=== PATIENT | female | born 1935 | race Native Hawaiian/Other Pacific Islander ===

== ENCOUNTER 2016-09-28 08:04 | Outpatient (CLI) | payer OTHER ==
[~2016-09-28 08:04] MED LIST: DIOVAN HC2 PO; FLECTOR1.3 % TD; LEVOTHROID150 MCG OR; LIPITOR40 MG PO; MECLIZINE25 MG PO; TRAM50TA PO; WARFARIN5 MG PO
== END 2016-09-28 19:06 | disposition home or self-care (01) ==
LOC: LABW 08:04
DX: I48.0 Paroxysmal atrial fibrillation (principal)
CPT/HCPCS: 36415; 85610

== ENCOUNTER 2016-11-14 07:58 | Outpatient (CLI) | payer OTHER | END 2016-11-14 19:29 | disposition home or self-care (01) | LOC: LABW 07:58 | DX: I48.0 Paroxysmal atrial fibrillation (principal) | CPT/HCPCS: 36415; 85610 ==

== ENCOUNTER 2016-12-22 10:21 | Outpatient (CLI) | payer OTHER | END 2016-12-22 19:12 | disposition home or self-care (01) | LOC: LABW 10:21 | DX: I48.0 Paroxysmal atrial fibrillation (principal) | CPT/HCPCS: 36415; 85610 ==

== ENCOUNTER 2017-01-24 07:50 | Outpatient (CLI) | payer OTHER | END 2017-01-24 19:19 | disposition home or self-care (01) | LOC: LABW 07:50 | DX: I48.0 Paroxysmal atrial fibrillation (principal) | CPT/HCPCS: 36415; 85610 ==

== ENCOUNTER 2017-02-21 07:58 | Outpatient (CLI) | payer OTHER ==
[~2017-02-21] VITALS: Ht 162.6 cm; Wt 93.4 kg
[2017-02-21 11:00] VITALS: BP 147/76; TEMP 97.7
== END 2017-02-21 10:00 | disposition home or self-care (01) ==
LOC: INF 07:58
DX: M81.0 Age-related osteoporosis without current pathological fracture (principal); I48.0 Paroxysmal atrial fibrillation
CPT/HCPCS: 36415; 82310; 85610; 96372; J0897

== ENCOUNTER 2017-03-28 10:05 | Outpatient (CLI) | payer OTHER ==
[2017-03-28 10:37] LABS: PLATELET COUNT 350 K/uL (152-353)
[2017-03-28 11:17] LABS: SODIUM 138 mmol/L (136-145)
== END 2017-03-28 11:05 | disposition home or self-care (01) ==
LOC: LAB 10:05
PROVIDERS: Internal Medicine
DX: I10 Essential (primary) hypertension (principal); E03.8 Other specified hypothyroidism
CPT/HCPCS: 80053; 80061; 81000; 84439; 84443; 85027

== ENCOUNTER 2017-04-04 15:04 | Outpatient (CLI) | payer OTHER | END 2017-04-04 19:37 | disposition home or self-care (01) | LOC: LABW 15:04 | DX: I48.0 Paroxysmal atrial fibrillation (principal) | CPT/HCPCS: 36415; 85610 ==

== ENCOUNTER 2017-06-04 10:23 | Outpatient (CLI) | payer OTHER ==
[2017-06-04 10:40] LABS: PLATELET COUNT 331 K/uL (152-353)
== END 2017-06-04 11:25 | disposition home or self-care (01) ==
LOC: LABW 10:23
PROVIDERS: Internal Medicine
DX: D64.89 Other specified anemias (principal)
CPT/HCPCS: 36415; 80053; 85027

== ENCOUNTER 2017-06-19 10:22 | Outpatient (CLI) | payer OTHER | END 2017-06-19 11:25 | disposition home or self-care (01) | LOC: LABW 10:22 | DX: I48.0 Paroxysmal atrial fibrillation (principal) | CPT/HCPCS: 36415; 85610 ==

== ENCOUNTER 2017-08-06 12:37 | Outpatient (CLI) | payer OTHER | END 2017-08-06 13:40 | disposition home or self-care (01) | LOC: LABW 12:37 | DX: I48.0 Paroxysmal atrial fibrillation (principal) | CPT/HCPCS: 36415; 85610 ==

== ENCOUNTER 2017-09-11 10:11 | Outpatient (CLI) | payer OTHER | END 2017-09-11 19:06 | disposition home or self-care (01) | LOC: LABW 10:11 | DX: I48.0 Paroxysmal atrial fibrillation (principal) | CPT/HCPCS: 36415; 85610 ==

== ENCOUNTER 2017-10-16 10:46 | Outpatient (CLI) | payer OTHER | END 2017-10-16 19:06 | disposition home or self-care (01) | LOC: LABW 10:46 | DX: I48.0 Paroxysmal atrial fibrillation (principal) | CPT/HCPCS: 36415; 85610 ==

== ENCOUNTER 2017-11-13 10:53 | Outpatient (CLI) | payer OTHER | END 2017-11-13 20:01 | disposition home or self-care (01) | LOC: LABW 10:53 | DX: I48.0 Paroxysmal atrial fibrillation (principal) | CPT/HCPCS: 36415; 85610 ==

== ENCOUNTER 2017-12-06 14:34 | Outpatient (CLI) | payer OTHER ==
[2017-12-06 15:08] LABS: PLATELET COUNT 330 K/uL (152-353)
[2017-12-06 15:25] LABS: POTASSIUM 3.6 mmol/L (3.6-5.2)
== END 2017-12-06 22:51 | disposition home or self-care (01) ==
LOC: LABW 14:34
PROVIDERS: Internal Medicine
DX: J40 Bronchitis, not specified as acute or chronic (principal); R05 Cough; R53.83 Other fatigue; R06.09 Other forms of dyspnea; D68.8 Other specified coagulation defects
CPT/HCPCS: 36415; 80053; 81000; 83880; 84439; 84443; 85027; 85610

== ENCOUNTER 2018-01-01 09:06 | Outpatient (CLI) | payer OTHER | END 2018-01-01 19:33 | disposition home or self-care (01) | LOC: LABW 09:06 | DX: I48.0 Paroxysmal atrial fibrillation (principal) | CPT/HCPCS: 36415; 85610 ==

== ENCOUNTER 2018-01-15 11:22 | Outpatient (CLI) | payer OTHER | END 2018-01-15 19:59 | disposition home or self-care (01) | LOC: LABW 11:22 | DX: I48.0 Paroxysmal atrial fibrillation (principal) | CPT/HCPCS: 36415; 85610 ==

== ENCOUNTER 2018-02-05 09:28 | Outpatient (CLI) | payer OTHER | END 2018-02-05 22:20 | disposition home or self-care (01) | LOC: LABW 09:28 | DX: I48.0 Paroxysmal atrial fibrillation (principal) | CPT/HCPCS: 36415; 85610 ==

== ENCOUNTER 2018-03-05 12:54 | Outpatient (CLI) | payer OTHER | END 2018-03-05 23:15 | disposition home or self-care (01) | LOC: LABW 12:54 | DX: I48.0 Paroxysmal atrial fibrillation (principal) | CPT/HCPCS: 36415; 85610 ==

== ENCOUNTER 2018-03-11 07:57 | Outpatient (CLI) | payer OTHER ==
[~2018-03-11] VITALS: Ht 162.6 cm; Wt 93.4 kg
== END 2018-03-11 20:13 | disposition home or self-care (01) ==
LOC: INF 07:57
DX: M81.0 Age-related osteoporosis without current pathological fracture (principal)
CPT/HCPCS: 36415; 82310; 96372; J0897

== ENCOUNTER 2018-04-09 10:20 | Outpatient (CLI) | payer OTHER | END 2018-04-09 19:08 | disposition home or self-care (01) | LOC: LABW 10:20 | DX: I48.0 Paroxysmal atrial fibrillation (principal) | CPT/HCPCS: 36415; 85610 ==

== ENCOUNTER 2018-04-24 08:19 | Outpatient (CLI) | payer OTHER | END 2018-04-24 19:15 | disposition home or self-care (01) | LOC: LABW 08:19 | DX: I48.0 Paroxysmal atrial fibrillation (principal) | CPT/HCPCS: 36415; 85610 ==

== ENCOUNTER 2018-06-18 10:41 | Outpatient (CLI) | payer OTHER | END 2018-06-18 22:42 | disposition home or self-care (01) | LOC: LABW 10:41 | DX: I48.0 Paroxysmal atrial fibrillation (principal) | CPT/HCPCS: 36415; 85610 ==

== ENCOUNTER 2018-07-23 08:53 | Outpatient (CLI) | payer OTHER | END 2018-07-23 22:22 | disposition home or self-care (01) | LOC: LABW 08:53 | DX: I48.0 Paroxysmal atrial fibrillation (principal) | CPT/HCPCS: 36415; 85610 ==

== ENCOUNTER 2018-09-17 13:15 | Outpatient (CLI) | payer OTHER | END 2018-09-17 23:44 | disposition home or self-care (01) | LOC: LABW 13:15 | DX: I48.0 Paroxysmal atrial fibrillation (principal) | CPT/HCPCS: 36415; 85610 ==

== ENCOUNTER 2018-09-23 08:56 | Outpatient (CLI) | payer OTHER ==
[~2018-09-23] VITALS: Ht 162.6 cm; Wt 95.3 kg
[2018-09-23 10:54] VITALS: BP 139/74; TEMP 97.6
== END 2018-09-23 10:55 | disposition home or self-care (01) ==
LOC: INF 08:56
DX: M81.0 Age-related osteoporosis without current pathological fracture (principal)
CPT/HCPCS: 36415; 82310; 96372; J0897

== ENCOUNTER 2018-11-12 13:39 | Outpatient (CLI) | payer OTHER | END 2018-11-12 19:41 | disposition home or self-care (01) | LOC: LABW 13:39 | DX: I48.0 Paroxysmal atrial fibrillation (principal) | CPT/HCPCS: 36415; 85610 ==

== ENCOUNTER 2018-12-05 09:32 | Outpatient (CLI) | payer OTHER ==
[2018-12-05 09:52] LABS: PLATELET COUNT 317 K/uL (152-353)
[2018-12-05 10:11] LABS: POTASSIUM 4.1 mmol/L (3.6-5.2)
== END 2018-12-05 19:17 | disposition home or self-care (01) ==
LOC: LABW 09:32
PROVIDERS: Internal Medicine
DX: D64.9 Anemia, unspecified (principal); I10 Essential (primary) hypertension; E03.9 Hypothyroidism, unspecified; I48.91 Unspecified atrial fibrillation
CPT/HCPCS: 36415; 80053; 80061; 81000; 84439; 84443; 85027; 85610

== ENCOUNTER 2018-12-31 13:11 | Outpatient (CLI) | payer OTHER | END 2018-12-31 23:15 | disposition home or self-care (01) | LOC: LABW 13:11 | DX: I48.0 Paroxysmal atrial fibrillation (principal) | CPT/HCPCS: 36415; 85610 ==

== ENCOUNTER 2019-01-16 09:34 | Outpatient (CLI) | payer OTHER | END 2019-01-16 19:12 | disposition home or self-care (01) | LOC: US 09:34 | DX: G45.9 Transient cerebral ischemic attack, unspecified (principal) ==

== ENCOUNTER 2019-01-28 14:03 | Outpatient (CLI) | payer OTHER | END 2019-01-28 20:33 | disposition home or self-care (01) | LOC: LABW 14:03 | DX: I48.0 Paroxysmal atrial fibrillation (principal) | CPT/HCPCS: 36415; 85610 ==

== ENCOUNTER 2019-03-11 13:24 | Outpatient (CLI) | payer OTHER | END 2019-03-11 20:03 | disposition home or self-care (01) | LOC: LABW 13:24 | DX: I48.0 Paroxysmal atrial fibrillation (principal) | CPT/HCPCS: 36415; 85610 ==

== ENCOUNTER 2019-04-14 12:47 | Outpatient (CLI) | payer OTHER ==
[~2019-04-14] VITALS: Ht 162.6 cm; Wt 96.2 kg
[2019-04-14 13:00] VITALS: BP 170/64; TEMP 97.9
== END 2019-04-14 14:34 | disposition home or self-care (01) ==
LOC: INF 12:47
DX: M81.0 Age-related osteoporosis without current pathological fracture (principal)
CPT/HCPCS: 36415; 82310; 96372; J0897

== ENCOUNTER 2019-04-22 13:08 | Outpatient (CLI) | payer OTHER | END 2019-04-22 23:59 | LOC: LABW 13:08 | DX: Z76.89 Persons encountering health services in other specified circumstances (principal); I48.0 Paroxysmal atrial fibrillation | CPT/HCPCS: 36415; 85610; 86735; 86762; 86765 ==

== ENCOUNTER 2019-06-03 13:14 | Outpatient (CLI) | payer OTHER | END 2019-06-03 23:29 | disposition home or self-care (01) | LOC: LABW 13:14 | DX: I48.0 Paroxysmal atrial fibrillation (principal) | CPT/HCPCS: 36415; 85610 ==

== ENCOUNTER 2019-08-05 13:59 | Outpatient (CLI) | payer OTHER | END 2019-08-05 19:42 | disposition home or self-care (01) | LOC: LABW 13:59 | DX: I48.0 Paroxysmal atrial fibrillation (principal) | CPT/HCPCS: 36415; 85610 ==

== ENCOUNTER 2019-09-16 14:40 | Outpatient (CLI) | payer OTHER | END 2019-09-16 19:32 | disposition home or self-care (01) | LOC: LABW 14:40 | DX: I48.0 Paroxysmal atrial fibrillation (principal) | CPT/HCPCS: 36415; 85610 ==

== ENCOUNTER 2019-10-08 08:10 | Outpatient (CLI) | payer OTHER ==
[2019-10-08 08:54] LABS: POTASSIUM 4.3 mmol/L (3.6-5.2)
[2019-10-08 09:40] LABS: PLATELET COUNT 330 K/uL (152-353)
== END 2019-10-08 22:26 | disposition home or self-care (01) ==
LOC: LABW 08:10
PROVIDERS: Internal Medicine
DX: Z00.00 Encounter for general adult medical examination without abnormal findings (principal); I48.0 Paroxysmal atrial fibrillation; I10 Essential (primary) hypertension
CPT/HCPCS: 36415; 80053; 80061; 81000; 84439; 84443; 85027

== ENCOUNTER 2019-10-22 10:01 | Outpatient (CLI) | payer OTHER | END 2019-10-22 20:54 | disposition home or self-care (01) | LOC: RAD 10:01 | DX: Z13.820 Encounter for screening for osteoporosis (principal); Z78.0 Asymptomatic menopausal state ==

== ENCOUNTER 2019-10-30 08:56 | Outpatient (CLI) | payer OTHER ==
[~2019-10-30] VITALS: Ht 162.6 cm; Wt 97.1 kg
[2019-10-30 09:30] VITALS: BP 124/78; TEMP 98
== END 2019-10-30 10:00 | disposition home or self-care (01) ==
LOC: INF 08:56
DX: M81.0 Age-related osteoporosis without current pathological fracture (principal)
CPT/HCPCS: 96372; J0897

== ENCOUNTER 2020-01-06 12:13 | Outpatient (CLI) | payer OTHER | END 2020-01-06 19:08 | disposition home or self-care (01) | LOC: LABW 12:13 | DX: I48.0 Paroxysmal atrial fibrillation (principal) | CPT/HCPCS: 36415; 85610 ==

== ENCOUNTER 2020-01-09 12:14 | Emergency (ER) | payer OTHER ==
[~2020-01-09] VITALS: Ht 162.6 cm; Wt 97.1 kg
[2020-01-09 12:27] VITALS: BP 172/72; TEMP 97.9
[2020-01-09 12:55] LABS: PLATELET COUNT 326 K/uL (152-353)
[2020-01-09 13:14] LABS: PARTIAL THROMBOPLASTIN TIME 35.5 SECONDS (24.5-33.6)
[2020-01-09 13:45] LABS: POTASSIUM 4.3 mmol/L (3.6-5.2); SODIUM 138 mmol/L (136-145)
== END 2020-01-09 15:00 | disposition home or self-care (01) ==
LOC: ED 12:14
PROVIDERS: Family Medicine
DX: R42 Dizziness and giddiness (principal); R55 Syncope and collapse; Z95.0 Presence of cardiac pacemaker
CPT/HCPCS: 80053; 81000; 82550; 84484; 85027; 85610; 85730; 93005; 99284

== ENCOUNTER 2020-03-15 10:44 | Outpatient (CLI) | payer OTHER | END 2020-03-15 19:20 | disposition home or self-care (01) | LOC: LABW 10:44 | DX: I48.0 Paroxysmal atrial fibrillation (principal) | CPT/HCPCS: 36415; 85610 ==

== ENCOUNTER 2020-04-15 15:02 | Outpatient (CLI) | payer OTHER | END 2020-04-15 22:00 | disposition home or self-care (01) | LOC: RAD 15:02 | DX: R05 Cough (principal) ==

== ENCOUNTER 2020-05-11 07:59 | Outpatient (CLI) | payer OTHER ==
[~2020-05-11] VITALS: Ht 162.6 cm; Wt 93.4 kg
[2020-05-11 08:25] VITALS: BP 144/68; TEMP 98.1
== END 2020-05-11 09:40 | disposition home or self-care (01) ==
LOC: INF 07:59
DX: M81.0 Age-related osteoporosis without current pathological fracture (principal)
CPT/HCPCS: 36415; 82310; 96372; J0897

== ENCOUNTER 2020-06-08 10:31 | Outpatient (CLI) | payer OTHER | END 2020-06-09 00:40 | disposition home or self-care (01) | LOC: LABW 10:31 | DX: I48.0 Paroxysmal atrial fibrillation (principal) | CPT/HCPCS: 36415; 85610 ==

== ENCOUNTER 2020-07-14 09:30 | Outpatient (CLI) | payer OTHER | END 2020-07-14 19:46 | disposition home or self-care (01) | LOC: LABW 09:30 | PROVIDERS: ATTEND Internal Medicine Clinical Cardiac Electrophysiology | DX: I48.0 Paroxysmal atrial fibrillation (principal) | CPT/HCPCS: 36415; 85610 ==

== ENCOUNTER 2020-08-10 11:15 | Outpatient (CLI) | payer OTHER | END 2020-08-10 19:58 | disposition home or self-care (01) | LOC: RAD 11:15 | PROVIDERS: ATTEND Internal Medicine | DX: M54.5 Low back pain (principal) ==

== ENCOUNTER 2020-08-17 13:03 | Outpatient (CLI) | payer OTHER | END 2020-08-17 22:00 | disposition home or self-care (01) | LOC: LABW 13:03 | PROVIDERS: ATTEND Internal Medicine Clinical Cardiac Electrophysiology | DX: I48.0 Paroxysmal atrial fibrillation (principal) | CPT/HCPCS: 36415; 85610 ==

== ENCOUNTER 2020-08-24 10:01 | Outpatient (CLI) | payer OTHER | END 2020-08-24 19:11 | disposition home or self-care (01) | LOC: LABW 10:01 | PROVIDERS: ATTEND Internal Medicine Clinical Cardiac Electrophysiology | DX: I48.0 Paroxysmal atrial fibrillation (principal) | CPT/HCPCS: 36415; 85610 ==

== ENCOUNTER 2020-08-31 08:00 | Outpatient (CLI) | payer OTHER ==
[2020-08-31 08:18] LABS: PLATELET COUNT 284 K/uL (152-353)
[2020-08-31 09:02] LABS: POTASSIUM 3.9 mmol/L (3.6-5.2)
== END 2020-08-31 21:32 | disposition home or self-care (01) ==
LOC: LABW 08:00
PROVIDERS: ATTEND Internal Medicine Clinical Cardiac Electrophysiology
DX: I48.0 Paroxysmal atrial fibrillation (principal); I10 Essential (primary) hypertension
CPT/HCPCS: 36415; 80053; 80061; 84439; 84443; 85027; 85610

== ENCOUNTER 2020-09-07 08:55 | Outpatient (CLI) | payer OTHER | END 2020-09-07 22:03 | disposition home or self-care (01) | LOC: LABW 08:55 | PROVIDERS: ATTEND Internal Medicine Clinical Cardiac Electrophysiology | DX: I48.0 Paroxysmal atrial fibrillation (principal) | CPT/HCPCS: 36415; 85610 ==

== ENCOUNTER 2020-09-22 10:06 | Outpatient (CLI) | payer OTHER | END 2020-09-22 23:59 | disposition home or self-care (01) | LOC: LABW 10:06 | PROVIDERS: ATTEND Internal Medicine Clinical Cardiac Electrophysiology | DX: I48.91 Unspecified atrial fibrillation (principal); Z79.01 Long term (current) use of anticoagulants | CPT/HCPCS: 36415; 85610 ==

== ENCOUNTER 2020-09-28 09:47 | Outpatient (CLI) | payer OTHER | END 2020-09-28 21:31 | disposition home or self-care (01) | LOC: LABW 09:47 | PROVIDERS: ATTEND Internal Medicine Clinical Cardiac Electrophysiology | DX: I48.0 Paroxysmal atrial fibrillation (principal) | CPT/HCPCS: 36415; 85610 ==

== ENCOUNTER 2020-11-01 09:57 | Outpatient (CLI) | payer OTHER | END 2020-11-01 22:49 | disposition home or self-care (01) | LOC: LABW 09:57 | PROVIDERS: ATTEND Internal Medicine Clinical Cardiac Electrophysiology | DX: I48.0 Paroxysmal atrial fibrillation (principal) | CPT/HCPCS: 36415; 85610 ==

== ENCOUNTER 2020-11-09 07:27 | Outpatient (CLI) | payer OTHER ==
[~2020-11-09] VITALS: Ht 162.6 cm; Wt 91.2 kg
== END 2020-11-09 19:10 | disposition home or self-care (01) ==
LOC: INF 07:27
PROVIDERS: ATTEND Internal Medicine
DX: M81.0 Age-related osteoporosis without current pathological fracture (principal)
CPT/HCPCS: 36415; 82310; 96372; J0897

== ENCOUNTER 2020-12-07 08:20 | Outpatient (CLI) | payer OTHER | END 2020-12-07 19:06 | disposition home or self-care (01) | LOC: LABW 08:20 | PROVIDERS: ATTEND Internal Medicine Clinical Cardiac Electrophysiology | DX: I48.0 Paroxysmal atrial fibrillation (principal) | CPT/HCPCS: 36415; 85610 ==

== ENCOUNTER 2021-01-18 10:40 | Outpatient (CLI) | payer OTHER | END 2021-01-18 19:34 | disposition home or self-care (01) | LOC: LABW 10:40 | PROVIDERS: ATTEND Internal Medicine Clinical Cardiac Electrophysiology | DX: I48.0 Paroxysmal atrial fibrillation (principal) | CPT/HCPCS: 36415; 85610 ==

== ENCOUNTER 2021-03-01 10:11 | Outpatient (CLI) | payer OTHER | END 2021-03-01 17:00 | disposition home or self-care (01) | LOC: LABW 10:11 | PROVIDERS: ATTEND Internal Medicine Clinical Cardiac Electrophysiology | DX: I48.0 Paroxysmal atrial fibrillation (principal) | CPT/HCPCS: 36415; 85610 ==

== ENCOUNTER 2021-04-08 13:14 | Outpatient (CLI) | payer OTHER | END 2021-04-08 20:01 | disposition home or self-care (01) | LOC: LABW 13:14 | PROVIDERS: ATTEND Internal Medicine Clinical Cardiac Electrophysiology | DX: I48.0 Paroxysmal atrial fibrillation (principal) | CPT/HCPCS: 36415; 85610 ==

== ENCOUNTER 2021-04-14 08:26 | Outpatient (CLI) | payer OTHER ==
[2021-04-14 08:47] LABS: PLATELET COUNT 294 K/uL (152-353)
[2021-04-14 09:03] LABS: POTASSIUM 4.1 mmol/L (3.6-5.2)
== END 2021-04-14 22:33 | disposition home or self-care (01) ==
LOC: LABW 08:26
PROVIDERS: ATTEND Internal Medicine
DX: E03.8 Other specified hypothyroidism (principal); I48.0 Paroxysmal atrial fibrillation; I10 Essential (primary) hypertension
CPT/HCPCS: 36415; 80053; 80061; 81000; 84439; 84443; 85027; 85610

== ENCOUNTER 2021-05-03 13:45 | Emergency (ER) | payer OTHER ==
[~2021-05-03] VITALS: Ht 162.6 cm; Wt 94.8 kg
[2021-05-03 13:51] VITALS: TEMP 98.6
[2021-05-03 15:06] LABS: PLATELET COUNT 292 K/uL (152-353)
[2021-05-03 15:07] LABS: POTASSIUM 3.9 mmol/L (3.6-5.2)
[2021-05-03 19:41] VITALS: BP 168/76
== END 2021-05-03 19:41 | disposition home or self-care (01) ==
LOC: ED 13:45
PROVIDERS: Emergency Medicine Emergency Medical Services
DX: I10 Essential (primary) hypertension (principal); I48.91 Unspecified atrial fibrillation; Z79.01 Long term (current) use of anticoagulants
CPT/HCPCS: 80053; 85027; 85610; 96374; 99284; J0360

== ENCOUNTER 2021-05-19 09:50 | Outpatient (CLI) | payer OTHER ==
[~2021-05-19] VITALS: Ht 162.6 cm; Wt 97.1 kg
== END 2021-05-19 20:10 | disposition home or self-care (01) ==
LOC: INF 09:50
PROVIDERS: ATTEND Internal Medicine
DX: M81.0 Age-related osteoporosis without current pathological fracture (principal)
CPT/HCPCS: 36415; 82310; 96372; J0897

== ENCOUNTER 2021-06-22 12:50 | Outpatient (CLI) | payer OTHER | END 2021-06-22 21:53 | disposition home or self-care (01) | LOC: LABW 12:50 | PROVIDERS: ATTEND Internal Medicine Clinical Cardiac Electrophysiology | DX: I48.0 Paroxysmal atrial fibrillation (principal) | CPT/HCPCS: 36415; 85610 ==

== ENCOUNTER 2021-08-04 11:07 | Outpatient (CLI) | payer OTHER | END 2021-08-04 19:00 | disposition home or self-care (01) | LOC: LABW 11:07 | PROVIDERS: ATTEND Internal Medicine Clinical Cardiac Electrophysiology | DX: I48.0 Paroxysmal atrial fibrillation (principal) | CPT/HCPCS: 36415; 85610 ==

== ENCOUNTER 2021-09-06 09:42 | Outpatient (CLI) | payer OTHER | END 2021-09-06 19:10 | disposition home or self-care (01) | LOC: LABW 09:42 | PROVIDERS: ATTEND Internal Medicine Clinical Cardiac Electrophysiology | DX: I48.0 Paroxysmal atrial fibrillation (principal) | CPT/HCPCS: 36415; 85610 ==

== ENCOUNTER 2021-11-09 13:22 | Outpatient (CLI) | payer OTHER | END 2021-11-09 19:40 | disposition home or self-care (01) | LOC: LABW 13:22 | PROVIDERS: ATTEND Internal Medicine Clinical Cardiac Electrophysiology | DX: I48.0 Paroxysmal atrial fibrillation (principal) | CPT/HCPCS: 36415; 85610 ==

== ENCOUNTER 2022-01-03 10:54 | Outpatient (CLI) | payer OTHER | END 2022-01-03 19:02 | disposition home or self-care (01) | LOC: LABW 10:54 | PROVIDERS: ATTEND Internal Medicine Clinical Cardiac Electrophysiology | DX: I48.0 Paroxysmal atrial fibrillation (principal) | CPT/HCPCS: 36415; 85610 ==

== ENCOUNTER 2022-02-03 08:11 | Outpatient (CLI) | payer OTHER ==
[2022-02-03 08:37] LABS: PLATELET COUNT 297 K/uL (152-353)
[2022-02-03 09:00] LABS: POTASSIUM 3.9 mmol/L (3.6-5.2)
== END 2022-02-03 19:17 | disposition home or self-care (01) ==
LOC: LABW 08:11
PROVIDERS: ATTEND Internal Medicine
DX: I10 Essential (primary) hypertension (principal); E03.8 Other specified hypothyroidism; I48.0 Paroxysmal atrial fibrillation
CPT/HCPCS: 36415; 80053; 80061; 81000; 84443; 84481; 85027; 85610

== ENCOUNTER 2022-04-11 10:29 | Outpatient (CLI) | payer OTHER | END 2022-04-11 19:57 | disposition home or self-care (01) | LOC: LABW 10:29 | PROVIDERS: ATTEND Internal Medicine Clinical Cardiac Electrophysiology | DX: I48.0 Paroxysmal atrial fibrillation (principal) | CPT/HCPCS: 36415; 85610 ==

== ENCOUNTER 2022-04-18 09:52 | Outpatient (CLI) | payer OTHER ==
[~2022-04-18] VITALS: Ht 162.6 cm; Wt 95.3 kg
[2022-04-18 10:15] VITALS: BP 95/54; TEMP 97.8
== END 2022-04-18 21:34 | disposition home or self-care (01) ==
LOC: INF 09:52
PROVIDERS: ATTEND Internal Medicine
DX: M81.0 Age-related osteoporosis without current pathological fracture (principal)
CPT/HCPCS: 36415; 82310; 96372; J0897

== ENCOUNTER 2022-05-12 13:01 | Outpatient (CLI) | payer OTHER | END 2022-05-12 19:13 | disposition home or self-care (01) | LOC: LABW 13:01 | PROVIDERS: ATTEND Internal Medicine Clinical Cardiac Electrophysiology | DX: I48.0 Paroxysmal atrial fibrillation (principal) | CPT/HCPCS: 36415; 85610 ==

== ENCOUNTER 2022-06-13 10:40 | Outpatient (CLI) | payer OTHER | END 2022-06-13 19:32 | disposition home or self-care (01) | LOC: LABW 10:40 | PROVIDERS: ATTEND Internal Medicine Clinical Cardiac Electrophysiology | DX: I48.0 Paroxysmal atrial fibrillation (principal) | CPT/HCPCS: 36415; 85610 ==

== ENCOUNTER → 2022-07-04 | Outpatient (CLI) | payer OTHER | LOC: RAD 09:08 | PROVIDERS: ATTEND Internal Medicine | DX: M25.431 Effusion, right wrist (principal) ==

== ENCOUNTER 2022-07-31 14:31 | Outpatient (CLI) | payer OTHER | END 2022-07-31 20:09 | disposition home or self-care (01) | LOC: LABW 14:31 | PROVIDERS: ATTEND Internal Medicine Clinical Cardiac Electrophysiology | DX: I48.0 Paroxysmal atrial fibrillation (principal) | CPT/HCPCS: 36415; 85610 ==

== ENCOUNTER 2022-09-11 14:40 | Outpatient (CLI) | payer OTHER | END 2022-09-11 21:40 | disposition home or self-care (01) | LOC: LABW 14:40 | PROVIDERS: ATTEND Internal Medicine Clinical Cardiac Electrophysiology | DX: I48.0 Paroxysmal atrial fibrillation (principal) | CPT/HCPCS: 36415; 85610 ==

== ENCOUNTER 2022-09-25 08:17 | Outpatient (CLI) | payer OTHER ==
[2022-09-25 08:37] LABS: PLATELET COUNT 299 K/uL (152-353)
[2022-09-25 08:55] LABS: POTASSIUM 4.1 mmol/L (3.6-5.2)
== END 2022-09-25 19:21 | disposition home or self-care (01) ==
LOC: LABW 08:17
PROVIDERS: ATTEND Internal Medicine
DX: I10 Essential (primary) hypertension (principal); E03.8 Other specified hypothyroidism; R82.998 Other abnormal findings in urine
CPT/HCPCS: 36415; 80053; 80061; 81000; 84439; 84443; 85027; 87077; 87086; 87088; 87186

== ENCOUNTER 2022-10-17 10:34 | Outpatient (CLI) | payer OTHER | END 2022-10-17 19:37 | disposition home or self-care (01) | LOC: LABW 10:34 | PROVIDERS: ATTEND Internal Medicine Clinical Cardiac Electrophysiology | DX: I48.0 Paroxysmal atrial fibrillation (principal) | CPT/HCPCS: 36415; 85610 ==

== ENCOUNTER 2022-11-14 13:42 | Outpatient (CLI) | payer OTHER | END 2022-11-14 19:28 | disposition home or self-care (01) | LOC: LABW 13:42 | PROVIDERS: ATTEND Internal Medicine Clinical Cardiac Electrophysiology | DX: I48.0 Paroxysmal atrial fibrillation (principal) | CPT/HCPCS: 36415; 85610 ==

== ENCOUNTER 2022-12-14 08:59 | Outpatient (CLI) | payer OTHER ==
[~2022-12-14] VITALS: Ht 162.6 cm; Wt 108.4 kg
[2022-12-14 09:40] VITALS: BP 133/57; TEMP 97.9
== END 2022-12-14 20:42 | disposition home or self-care (01) ==
LOC: INF 08:59
PROVIDERS: ATTEND Internal Medicine
DX: M81.0 Age-related osteoporosis without current pathological fracture (principal)
CPT/HCPCS: 36415; 82310; 96372; J0897

== ENCOUNTER 2023-01-08 10:08 | Outpatient (CLI) | payer OTHER | END 2023-01-08 19:00 | disposition home or self-care (01) | LOC: LABW 10:08 | PROVIDERS: ATTEND Internal Medicine Clinical Cardiac Electrophysiology | DX: I48.0 Paroxysmal atrial fibrillation (principal) | CPT/HCPCS: 36415; 85610 ==

== ENCOUNTER 2023-01-15 09:52 | Outpatient (CLI) | payer OTHER | END 2023-01-15 20:13 | disposition home or self-care (01) | LOC: LABW 09:52 | PROVIDERS: ATTEND Internal Medicine Clinical Cardiac Electrophysiology | DX: I48.0 Paroxysmal atrial fibrillation (principal) | CPT/HCPCS: 36415; 85610 ==

== ENCOUNTER 2023-02-20 10:21 | Outpatient (CLI) | payer OTHER | END 2023-02-20 19:09 | disposition home or self-care (01) | LOC: LABW 10:21 | PROVIDERS: ATTEND Internal Medicine Clinical Cardiac Electrophysiology | DX: I48.0 Paroxysmal atrial fibrillation (principal) | CPT/HCPCS: 36415; 85610 ==

== ENCOUNTER 2023-05-14 10:23 | Outpatient (CLI) | payer OTHER | END 2023-05-14 19:07 | disposition home or self-care (01) | LOC: LABW 10:23 | PROVIDERS: ATTEND Internal Medicine Clinical Cardiac Electrophysiology | DX: I48.0 Paroxysmal atrial fibrillation (principal) | CPT/HCPCS: 36415; 85610 ==

== ENCOUNTER 2023-06-14 08:57 | Outpatient (CLI) | payer OTHER ==
[~2023-06-14] VITALS: Ht 162.6 cm; Wt 90.7 kg
== END 2023-06-14 19:44 | disposition home or self-care (01) ==
LOC: INF 08:57
PROVIDERS: ATTEND Internal Medicine Endocrinology, Diabetes & Metabolism
DX: M81.0 Age-related osteoporosis without current pathological fracture (principal); I48.0 Paroxysmal atrial fibrillation
CPT/HCPCS: 36415; 36591; 82310; 85610; 96372; J0897